=== PATIENT | female | born 1995 | race Caucasian/White ===

== ENCOUNTER 2020-10-14 09:26 | Outpatient (CLI) | payer OTHER | END 2020-10-14 09:28 | disposition home or self-care (01) | LOC: LAB 09:26 | DX: Z03.818 Encounter for observation for suspected exposure to other biological agents ruled out (principal) ==

== ENCOUNTER 2020-10-15 08:04 | Outpatient (CLI) | payer OTHER | END 2020-10-15 15:00 | disposition home or self-care (01) | LOC: LAB 08:04 | DX: Z03.818 Encounter for observation for suspected exposure to other biological agents ruled out (principal); Z20.822 Contact with and (suspected) exposure to COVID-19 ==

== ENCOUNTER 2020-10-28 06:38 | Outpatient (CLI) | payer OTHER | END 2020-10-28 10:53 | disposition home or self-care (01) | LOC: LAB 06:38 | PROVIDERS: ATTEND Emergency Medicine Pediatric Emergency Medicine | DX: U07.1 COVID-19 (principal) ==